=== PATIENT | female | born 1975 | race American Indian/Alaskan Native ===

== ENCOUNTER 2020-10-19 15:56 | Emergency (ER) | payer OTHER, MEDICARE ==
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
[2020-10-19 19:01] LABS: HCG Qualitative,Urine Negative (Negative)
[2020-10-19 19:02] LABS: Basophils # (Auto) 0.1 K/mm3 (0.0-0.1); Eosinophils # (Auto) 0.1 K/mm3 (0.0-0.4); Eosinophils % (Auto) 1.2 % (0.0-4.3); Hematocrit 32.5 % (30.3-42.9); Hemoglobin 10.3 gm/dl (10.1-14.3); Lymphocytes # (Auto) 1.9 K/mm3 (1.2-5.4); Mean Corpuscular HGB Conc 32 % (30-34); Monocytes # (Auto) 0.5 K/mm3 (0.0-0.8); Monocytes % (Auto) 10.3 % (0.0-7.3); Platelet Count 424 K/mm3 (140-440); Red Blood Count 4.75 M/mm3 (3.65-5.03); Red Cell Distribution Width 18.4 % (13.2-15.2)
[2020-10-19 19:03] LABS: Mean Corpuscular Volume 69 fl (79-97)
[2020-10-19 19:05] LABS: Bilirubin,Urine NEG (Negative); Blood,Urine NEG (Negative); Color,Urine Yellow (Yellow); Mucus,Urine FEW /HPF; Protein,Urine <15 mg/dL mg/dL (Negative); Urobilinogen,Urine < 2.0 mg/dL (<2.0)
[2020-10-19 19:26] LABS: Alanine Aminotransferase 19 units/L (7-56); Albumin 4.5 g/dL (3.9-5); Blood Urea Nitrogen 9 mg/dL (7-17); Calcium 8.6 mg/dL (8.4-10.2); Hemolysis Index 4
[2020-10-19 19:31] LABS: BUN/Creatinine Ratio 18
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
[2020-10-19] MEDS ORDERED: ONDANSETRON 4 MG/2 ML INJ IV ONE (20:09)
[2020-10-19] MEDS ORDERED: HYDROmorphone 1 MG/1 ML INJ IV ONE (20:09)
[2020-10-19] MEDS ORDERED: ONDANSETRON 4 MG/2 ML INJ ONE (23:16)
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
[2020-10-20] MEDS ORDERED: HYDROmorphone 1 MG/1 ML INJ IV ONE (00:37)
[2020-10-20 03:34] VITALS: BP 132/69
--- NOTE | 2020-10-20 10:40 | Electrocardiograph Report ---
[facility] Test Date: 2020-10-19 Test Time: 18:28:01 Pat Name: BELTRAN CORTES Department: Room: Gender: F Correspondence Clerk: JONH : 1975 Requested By: CHARITO RAMOS Order Number: [id number] Reading MD: Samy Holm Measurements Intervals [place] Rate: 70 P: 49 HI: 171 QRS: -13 QRSD: 84 T: 58 QT: 408 QTc: 439 Interpretive Statements Sinus rhythm No previous ECG available for comparison Electronically Signed On 10-20-2020 10:39:51 EDT by Samy Holm
== END 2020-10-20 03:00 | disposition home or self-care (01) ==
LOC: ED 15:56
DX: S06.0X9A Concussion with loss of consciousness of unspecified duration, initial encounter (principal); S80.02XA Contusion of left knee, initial encounter; R55 Syncope and collapse; R07.89 Other chest pain; R10.9 Unspecified abdominal pain; I10 Essential (primary) hypertension; E11.9 Type 2 diabetes mellitus without complications; Z90.49 Acquired absence of other specified parts of digestive tract; Z98.890 Other specified postprocedural states; Z79.899 Other long term (current) drug therapy; V49.49XA Driver injured in collision with other motor vehicles in traffic accident, initial encounter; W22.10XA Striking against or struck by unspecified automobile airbag, initial encounter; Y93.89 Activity, other specified; Y92.410 Unspecified street and highway as the place of occurrence of the external cause; Y99.8 Other external cause status
CPT/HCPCS: 36415; 70450; 71046; 71250; 73562; 74176; 80053; 81001; 81025; 83735; 84484; 85025; 93005; 96374; 96375; 96376; 99285; J1170; J2405